=== PATIENT | male | born 1980 | race African-American/Black ===

== ENCOUNTER 2022-11-01 21:43 | Emergency (ER) | payer OTHER ==
[~2022-11-01] VITALS: Ht 177.8 cm; Wt 133.8 kg
[2022-11-01] MEDS ORDERED: KETOROLAC TROMETH 60MG/2ML VIAL IM ONE (23:30)
[2022-11-01] MEDS ORDERED: CYCL-837 PO (23:36)
[2022-11-01] MEDS ORDERED: ACE3T PO (23:36)
[2022-11-01] MEDS ORDERED: FLUT1SPR9 (23:36)
[2022-11-01 23:47] VITALS: BP 150/89
== END 2022-11-02 00:03 | disposition home or self-care (01) ==
LOC: EDBD 21:43 → ER 21:43
DX: S39.012A Strain of muscle, fascia and tendon of lower back, initial encounter (principal); J30.9 Allergic rhinitis, unspecified; X50.0XXA Overexertion from strenuous movement or load, initial encounter; Y93.89 Activity, other specified; Y92.89 Other specified places as the place of occurrence of the external cause; Y99.8 Other external cause status
CPT/HCPCS: 96372; 99283; J1885